=== PATIENT | female | born 1930 | race Caucasian/White ===

== ENCOUNTER → 2018-06-07 | Outpatient (CLI) | payer MEDICARE, BC ==
[~2018-06-07] MED LIST: ALEVE220 MG PO; ASPI325 PO; FIBER THERAPY GT; Mucinex600 MG; Omeprazole20 M1
== END ==
LOC: LAB 09:56 → LAB SHORT 09:56
DX: R30.0 Dysuria (principal)
CPT/HCPCS: 87086

== ENCOUNTER 2018-06-12 13:52 | Emergency (ER) | payer MEDICARE, BC ==
[~2018-06-12] VITALS: Ht 154.9 cm; Wt 73.9 kg
[2018-06-12 15:04] LABS: BASOPHILS ABSOLUTE AUTO 0.05 K/mm3 (0.00-0.23); BASOPHILS PERCENT AUTO 1 % (0-2); EOSINOPHILS ABSOLUTE AUTO 0.08 K/mm3 (0.00-0.68); EOSINOPHILS PERCENT AUTO 1 % (0-6); Hematocrit 39.7 % (33.0-51.0); IMMATURE GRAN ABSOLUTE AUTO 0.02 K/mm3 (0.00-0.10); IMMATURE GRAN PERCENT AUTO 0 % (0-1); LYMPHOCYTES ABSOLUTE AUTO 1.33 K/mm3 (0.84-5.20); LYMPHOCYTES PERCENT AUTO 21 % (21-46); MONOCYTES ABSOLUTE AUTO 0.74 K/mm3 (0.16-1.47); MONOCYTES PERCENT AUTO 12 % (4-13); Mean Corpuscular HGB 29.8 pg (26.0-34.0); Mean Corpuscular HGB Conc 32.7 g/dL (31.5-36.5); Mean Corpuscular Volume 91 fL (80-100); Mean Platelet Volume 9.8 fL (9.1-12.4); NEUTROPHILS ABSOLUTE AUTO 4.09 K/mm3 (1.96-9.15); NEUTROPHILS PERCENT AUTO 65 % (41-73); Platelet Count 221 K/mm3 (150-400); RDW Coefficient Variation 12.6 % (11.7-14.2); RDW Standard Deviation 42.5 fL (35.1-46.3); Red Blood Cell Count 4.36 M/mm3 (3.80-5.20); White Blood Cell Count 6.31 K/mm3 (4.00-11.30)
[2018-06-12 15:23] LABS: Alanine Aminotransfer (ALT/SGP 24 U/L (12-78); Albumin, Blood 3.6 g/dL (3.4-5.0); Albumin/Globulin Ratio 1.2 (0.8-1.8); Alk Phos 62 U/L (50-136); Anion Gap 8 mmol/L (6-16); Aspartate Aminotrans (AST/SGOT 21 U/L (12-37); Bilirubin, Total 0.3 mg/dL (0.1-1.0); Blood Urea Nitrogen 13 mg/dL (8-24); Bun/Creatinine Ratio 15.6 (12.0-20.0); CO2, Blood 27 mmol/L (21-32); Calcium, Blood 8.8 mg/dL (8.5-10.1); Chloride, Blood 101 mmol/L (98-108); Creatinine, Blood 0.83 mg/dL (0.40-1.00); Globulin, Blood 2.9 g/dL (2.2-4.0); Glomerular Filtration Rate >60 (60-); Glucose, Blood 114 mg/dL (70-99); Potassium, Blood 4.1 mmol/L (3.5-5.5); Sodium, Blood 136 mmol/L (136-145); Total Protein, Blood 6.5 g/dL (6.4-8.2)
== END 2018-06-12 16:12 | disposition home or self-care (01) ==
LOC: ER 13:52
PROVIDERS: Internal Medicine
DX: R55 Syncope and collapse (principal); Z88.2 Allergy status to sulfonamides; Z79.899 Other long term (current) drug therapy; I10 Essential (primary) hypertension
CPT/HCPCS: 36415; 80053; 85025; 93005; 93010; 99284-25; J7120

== ENCOUNTER 2018-06-16 09:24 | Inpatient (IN) | payer MEDICARE, BC ==
[~2018-06-16] VITALS: Ht 154.9 cm; Wt 73.9 kg
[2018-06-16] MEDS ORDERED: Prinivil10 MG PO (10:01)
[2018-06-16] MEDS ORDERED: [UNRECOGNIZED DRUG - OTHER] (10:02)
[2018-06-16] MEDS ORDERED: ASPI81CH PO (10:02)
[2018-06-16 10:03] LABS: BASOPHILS ABSOLUTE AUTO 0.08 K/mm3 (0.00-0.23); BASOPHILS PERCENT AUTO 1 % (0-2); EOSINOPHILS ABSOLUTE AUTO 0.09 K/mm3 (0.00-0.68); EOSINOPHILS PERCENT AUTO 1 % (0-6); Hematocrit 43.3 % (33.0-51.0); Hemoglobin 14.4 g/dL (11.5-16.0); IMMATURE GRAN ABSOLUTE AUTO 0.02 K/mm3 (0.00-0.10); IMMATURE GRAN PERCENT AUTO 0 % (0-1); LYMPHOCYTES ABSOLUTE AUTO 1.83 K/mm3 (0.84-5.20); LYMPHOCYTES PERCENT AUTO 29 % (21-46); MONOCYTES ABSOLUTE AUTO 0.66 K/mm3 (0.16-1.47); MONOCYTES PERCENT AUTO 11 % (4-13); Mean Corpuscular HGB 30.2 pg (26.0-34.0); Mean Corpuscular HGB Conc 33.3 g/dL (31.5-36.5); Mean Corpuscular Volume 91 fL (80-100); Mean Platelet Volume 9.6 fL (9.1-12.4); NEUTROPHILS ABSOLUTE AUTO 3.61 K/mm3 (1.96-9.15); NEUTROPHILS PERCENT AUTO 57 % (41-73); Platelet Count 245 K/mm3 (150-400); RDW Coefficient Variation 12.5 % (11.7-14.2); Red Blood Cell Count 4.77 M/mm3 (3.80-5.20); White Blood Cell Count 6.29 K/mm3 (4.00-11.30)
[2018-06-16 10:17] LABS: Alanine Aminotransfer (ALT/SGP 20 U/L (12-78); Albumin/Globulin Ratio 1.2 (0.8-1.8); Alk Phos 71 U/L (50-136); Anion Gap 8 mmol/L (6-16); Aspartate Aminotrans (AST/SGOT 25 U/L (12-37); Bilirubin, Total 0.5 mg/dL (0.1-1.0); Blood Urea Nitrogen 11 mg/dL (8-24); Bun/Creatinine Ratio 13.4 (12.0-20.0); CO2, Blood 25 mmol/L (21-32); Calcium, Blood 9.2 mg/dL (8.5-10.1); Chloride, Blood 101 mmol/L (98-108); Creatinine, Blood 0.82 mg/dL (0.40-1.00); Globulin, Blood 3.3 g/dL (2.2-4.0); Glomerular Filtration Rate >60 (60-); Glucose, Blood 98 mg/dL (70-99); Potassium, Blood 4.3 mmol/L (3.5-5.5); Sodium, Blood 134 mmol/L (136-145); Total Protein, Blood 7.3 g/dL (6.4-8.2)
[2018-06-16 17:58] LABS: Source, Urine Clean Catch
[2018-06-16 18:01] LABS: Appearance, Urine Clear (Clear); Bilirubin, Urine Neg (Neg); Blood, Urine Neg (Neg); Color, Urine Yellow (P-Yellow); Glucose Qualitative, Urine Neg (Neg); Ketones, Urine Neg (Neg); Leukocyte Esterase, Urine Neg (Neg); Nitrite, Urine Neg (Neg); Protein, Urine Neg (Neg); Urobilinogen, Urine NORM (Normal)
[2018-06-17 05:10] LABS: Hematocrit 41.1 % (33.0-51.0); Hemoglobin 13.4 g/dL (11.5-16.0); Mean Corpuscular HGB 29.6 pg (26.0-34.0); Mean Corpuscular HGB Conc 32.6 g/dL (31.5-36.5); Mean Corpuscular Volume 91 fL (80-100); Mean Platelet Volume 9.4 fL (9.1-12.4); Platelet Count 214 K/mm3 (150-400); RDW Coefficient Variation 12.9 % (11.7-14.2); RDW Standard Deviation 42.5 fL (35.1-46.3); Red Blood Cell Count 4.53 M/mm3 (3.80-5.20); White Blood Cell Count 4.58 K/mm3 (4.00-11.30)
[2018-06-17 05:22] LABS: Anion Gap 9 mmol/L (6-16); Blood Urea Nitrogen 12 mg/dL (8-24); Bun/Creatinine Ratio 14.8 (12.0-20.0); CO2, Blood 26 mmol/L (21-32); Calcium, Blood 8.9 mg/dL (8.5-10.1); Chloride, Blood 103 mmol/L (98-108); Creatinine, Blood 0.81 mg/dL (0.40-1.00); Glomerular Filtration Rate >60 (60-); Glucose, Blood 88 mg/dL (70-99); Potassium, Blood 3.9 mmol/L (3.5-5.5); Sodium, Blood 138 mmol/L (136-145)
== END 2018-06-17 11:46 | disposition home or self-care (01) | DRG 103 ==
LOC: ER 09:24 → MEDS 11:35 → ENPENDDIS 06-17 10:30 → MEDS 06-17 11:46
PROVIDERS: Emergency Medicine; Internal Medicine
DX: G43.409 Hemiplegic migraine, not intractable, without status migrainosus (principal); I16.0 Hypertensive urgency; I10 Essential (primary) hypertension; R55 Syncope and collapse; Z79.82 Long term (current) use of aspirin; Z96.643 Presence of artificial hip joint, bilateral
CPT/HCPCS: 36415; 70450; 70551; 80048; 80053; 81003; 85025; 85027; 93005; 93010; 93306; 93880; 96361; 96374; 99285-25; J0360; J1650; J7030

== ENCOUNTER 2019-08-09 15:06 | Emergency (ER) | payer MEDICARE, BC ==
[~2019-08-09] VITALS: Ht 154.9 cm; Wt 68.5 kg
[~2019-08-09 15:06] MED LIST changes: +ASPI81CH PO; +Prinivil10 MG PO; +[UNRECOGNIZED DRUG - OTHER]
[2019-08-09 15:44] LABS: BASOPHILS ABSOLUTE AUTO 0.07 K/mm3 (0.00-0.23); BASOPHILS PERCENT AUTO 1 % (0-2); EOSINOPHILS ABSOLUTE AUTO 0.14 K/mm3 (0.00-0.68); EOSINOPHILS PERCENT AUTO 2 % (0-6); Hematocrit 39.4 % (33.0-51.0); Hemoglobin 12.9 g/dL (11.5-16.0); IMMATURE GRAN ABSOLUTE AUTO 0.03 K/mm3 (0.00-0.10); IMMATURE GRAN PERCENT AUTO 0 % (0-1); LYMPHOCYTES ABSOLUTE AUTO 2.11 K/mm3 (0.84-5.20); LYMPHOCYTES PERCENT AUTO 28 % (21-46); MONOCYTES ABSOLUTE AUTO 0.78 K/mm3 (0.16-1.47); MONOCYTES PERCENT AUTO 10 % (4-13); Mean Corpuscular HGB 31.1 pg (26.0-34.0); Mean Corpuscular HGB Conc 32.7 g/dL (31.5-36.5); Mean Corpuscular Volume 95 fL (80-100); Mean Platelet Volume 9.8 fL (9.1-12.4); NEUTROPHILS ABSOLUTE AUTO 4.53 K/mm3 (1.96-9.15); NEUTROPHILS PERCENT AUTO 59 % (41-73); Platelet Count 258 K/mm3 (150-400); RDW Coefficient Variation 12.7 % (11.7-14.2); RDW Standard Deviation 44.6 fL (35.1-46.3); Red Blood Cell Count 4.15 M/mm3 (3.80-5.20); White Blood Cell Count 7.66 K/mm3 (4.00-11.30)
[2019-08-09 16:01] LABS: Alanine Aminotransfer (ALT/SGP 27 U/L (12-78); Albumin, Blood 3.7 g/dL (3.4-5.0); Albumin/Globulin Ratio 1.2 (0.8-1.8); Alk Phos 68 U/L (50-136); Anion Gap 6 mmol/L (6-16); Aspartate Aminotrans (AST/SGOT 28 U/L (12-37); Bilirubin, Total 0.4 mg/dL (0.1-1.0); Blood Urea Nitrogen 24 mg/dL (8-24); Bun/Creatinine Ratio 18.5 (12.0-20.0); CO2, Blood 28 mmol/L (21-32); Calcium, Blood 8.9 mg/dL (8.5-10.1); Chloride, Blood 104 mmol/L (98-108); Glomerular Filtration Rate 41 (60-); Glucose, Blood 132 mg/dL (70-99); Potassium, Blood 3.8 mmol/L (3.5-5.5); Sodium, Blood 138 mmol/L (136-145); Total Protein, Blood 6.7 g/dL (6.4-8.2); Troponin I <0.015 ng/mL (0.000-0.040)
== END 2019-08-09 18:15 | disposition home or self-care (01) ==
LOC: ER 15:06
PROVIDERS: Physician Assistant
DX: R55 Syncope and collapse (principal); S90.511A Abrasion, right ankle, initial encounter; E86.0 Dehydration; I10 Essential (primary) hypertension; Z88.2 Allergy status to sulfonamides; Z79.899 Other long term (current) drug therapy; Z79.82 Long term (current) use of aspirin; X58.XXXA Exposure to other specified factors, initial encounter
CPT/HCPCS: 36415; 71046; 80053; 84484; 85025; 93005; 93010; 96360; 96361; 99284-25; J7030

== ENCOUNTER → 2020-05-16 | Outpatient (CLI) | payer MEDICARE, BC | END | disposition home or self-care (01) | LOC: LAB SHORT 07:08 → LAB 07:08 | PROVIDERS: Family Medicine | DX: Z12.72 Encounter for screening for malignant neoplasm of vagina (principal); Z90.710 Acquired absence of both cervix and uterus | CPT/HCPCS: G0123 ==